=== PATIENT | male | born 1940 | race Caucasian/White ===

== ENCOUNTER 2016-04-28 00:13 | Emergency (ER) | payer MEDICARE | END 2016-04-28 05:45 | disposition home or self-care (01) | LOC: ER 00:13 | DX: R41.0 Disorientation, unspecified (principal); K21.9 Gastro-esophageal reflux disease without esophagitis; I10 Essential (primary) hypertension; E78.5 Hyperlipidemia, unspecified; F17.210 Nicotine dependence, cigarettes, uncomplicated; F03.90 Unspecified dementia, unspecified severity, without behavioral disturbance, psychotic disturbance, mood disturbance, and anxiety; Z79.01 Long term (current) use of anticoagulants; Z79.899 Other long term (current) drug therapy; Z91.09 Other allergy status, other than to drugs and biological substances | CPT/HCPCS: 36415 ==